=== PATIENT | male | born 1955 | race Caucasian/White ===

== ENCOUNTER 2022-12-01 13:13 | Observation (INO) | payer MEDICARE, SELFPAY ==
[2022-12-01] VITALS (75 sets, daily range): BP systolic 120–170; BP diastolic 57–102; PULSE 60–85; RESP 12–46; TEMP 36.6; O2SAT 95–99; BMI 30.8
--- NOTE | 2022-12-01 13:21 | DI.RAD.S_ITS ---
PROCEDURE: XR CHEST 1V INDICATIONS: chest pain TECHNIQUE: One view of the chest was acquired. COMPARISON: None. FINDINGS: Surgical changes and devices: None. Lungs and pleura: Lungs are clear. No pleural effusions or pneumothorax. Mediastinum: Mediastinal contours appear normal. Heart size is normal. Bones and chest wall: No suspicious bony lesions. Overlying soft tissues appear unremarkable. IMPRESSION: No acute cardiopulmonary pathology. Dictated by: Nikos Phan M.D. on 12/01/2022 at 13:57 Approved by: Nikos Phan M.D. on 12/01/2022 at 13:57
[2022-12-01] MEDS: ASPIRIN 81 MG CHEW TAB 324 MG PO (13:44)
[2022-12-01 13:49] LABS: Add Manual Diff / Slide Review NO; Basophils Absolute Auto 100 /uL (0-100); Basophils Percent Auto 0.5 % (0-2); Eosinophils Absolute Auto 300 /uL (0-450); Eosinophils Percent Auto 2.3 % (2-4); Hematocrit 40.3 % (41-53); Hemoglobin 13.5 g/dL (13.5-17.5); Lymphocytes Absolute Auto 1700 /uL (1100-4500); Lymphocytes Percent Auto 14.6 % (25-40); Mean Corpuscular HGB Conc 33.5 % (30-36); Mean Corpuscular Hemoglobin 29.3 PG (26-34); Mean Corpuscular Volume 87.5 fL (80-100); Monocytes Absolute Auto 1100 /uL (0-900); Monocytes Percent Auto 9.2 % (3-14); Neutrophils Absolute Auto 8500 /uL (1500-7000); Neutrophils Percent Auto 73.4 % (50-75); Platelet Count 347 X10^3/uL (150-400); White Blood Cell Count 11.6 X10^3/uL (4.5-11.0)
[2022-12-01 13:54] LABS: INR 1.1 (0.9-1.3); Prothrombin Time 12.3 SECONDS (10.1-12.7)
[2022-12-01 13:57] LABS: PTT Partial Thromboplastin Tim 32 SECONDS (26-36)
[2022-12-01 13:58] LABS: Alanine Aminotransferase 24 IU/L (<50); Albumin 4.2 g/dL (3.5-5.0); Albumin Globulin Ratio 1.1 (1.0-2.8); Alkaline Phosphatase 100 U/L (38-126); Aspartate Aminotransferase 25 IU/L (17-59); BUN Creatinine Ratio 22.1 (6-22); Bilirubin Total 0.4 mg/dL (0.2-1.3); Blood Urea Nitrogen 17 mg/dL (9-20); Calcium 9.1 mg/dL (8.4-10.2); Carbon Dioxide 28 mmol/L (22-32); Chloride 104 mmol/L (98-107); Creatine Kinase 70 U/L (55-170); Estimated Glomerular Filt Rate > 60 mL/min (>60); Globulin 3.7 g/dL (1.7-4.1); Glucose 96 mg/dL (80-110); HEMOLYSIS < 15 (0-50); Lipase 144 U/L (23-300); Potassium 3.9 mmol/L (3.4-5.1); Sodium 137 mmol/L (137-145); Total Protein 7.9 g/dL (6.3-8.2)
--- NOTE | 2022-12-01 14:07 | ED.CHESTPAIN ---
HPI - Chest Pain General Chief Complaint: Chest Pain Stated Complaint: chest pain T-1 Time Seen by Provider: 12/01/22 13:34 Source: patient Mode of arrival: Ambulatory Limitations: no limitations History of Present Illness HPI narrative: Patient is an otherwise healthy 67-year-old male who is here for evaluation of left-sided chest discomfort. He states the discomfort started last evening but is worsened this morning. Has been consistent since the onset. It is somewhat worse when he takes a deep breath. Not worse with movement or eating. No coughing. It does radiate to the left side of his jaw. He does describe it as a pressure. No abdominal pain or nausea and vomiting. Has not tried anything for the symptoms prior to arrival. Related Data Allergies Allergy/AdvReac Type Severity Reaction Status Date / Time No Known Drug Allergies Allergy Verified 12/01/22 13:18 Review of Systems Review of Systems ROS Unobtainable: All systems reviewed & are unremarkable except as noted in HPI and below Patient History Social History Smoking Status: Never smoker Smoking Status: Never smoker alcohol intake frequency: holidays/special occasions only Substance Use Type: does not use Exam Initial Vital Signs Initial Vital Signs: Vital Signs Temperature 98 F 12/01/22 13:18 Pulse Rate 85 12/01/22 13:18 Respiratory Rate 20 12/01/22 13:18 Blood Pressure 158/70 H 12/01/22 13:18 Pulse Oximetry 98 12/01/22 13:18 Oxygen Delivery Method Room Air 12/01/22 13:18 Const General: cooperative, comfortable and No ill appearing [facility] Head: normal to inspection and normocephalic Resp Effort & Inspection: normal respiratory effort Auscultation: clear to auscultation bilaterally Cardio Rate: regular rate Rhythm: regular rhythm GI Inspection: normal to inspection Palpation: soft, No firm and No tender Skin General: no rashes or lesions noted Neuro General: patient alert, patient awake, patient oriented x3 and moves all extremities Extrem General: No edema Psych Appearance: grossly normal and well kempt Scores HEART Score Heart Score history: Moderately Suspicious Heart Score EKG: Non-Specific repolarization disturbance Heart Score Age: > or = 65 years old Heart Score risk factors: No known risk factors Heart Score troponin: < or = to normal limit Heart Score Total: 4 Course Orders Ordered: ED Orders 12/01/22 13:21 XR chest 1V Stat EKG-12 Lead Stat 12/01/22 13:35 Complete Blood Count AUTO DIFF Stat Comprehensive Metabolic Panel Stat ESR [Erythrocyte Sedimentation Rate] Stat Lipase Stat Magnesium Stat PTT Partial Thromboplastin Brian Stat Prothrombin Time INR Stat Troponin & CK Cardiac Panel Stat 12/01/22 13:38 COVID19 -Nasal RAPID Stat 12/01/22 15:00 D Dimer Stat 12/01/22 15:05 CRP [C-Reactive Protein Quant] Stat Troponin & CK Cardiac Panel Stat 12/01/22 17:30 CT angio chest PE protocol Stat Nitroglycerin (Nitroglycerin 0.4 Mg Sl Tab) 0.4 mg SL [id number] PRN PRN Reason: Chest Pain Last Admin: 12/01/22 14:14 Dose: 0.4 mg Documented By: NICK Discontinued Medications Aspirin (Aspirin 81 Mg Chew Tab) 324 mg PO NOW ONE Stop: 12/01/22 13:22 Last Admin: 12/01/22 13:44 Dose: 324 mg Documented By: NICK(2) Al Hydrox/Mg Hydrox/Simethicone 20 ml/ Lidocaine HCl 15 ml 0 ml PO NOW ONE Stop: 12/01/22 14:23 Last Admin: 12/01/22 14:39 Dose: 30 ml Documented By: NICK Vital Signs Vital signs: Vital Signs - 8 hr 12/01/22 13:18 12/01/22 13:37 12/01/22 14:14 Temperature 98 F Pulse Rate 85 70 64 Respiratory Rate 20 21 Blood Pressure 158/70 H 139/66 Pulse Oximetry 98 96 Oxygen Delivery Method Room Air 12/01/22 14:19 12/01/22 13:40 12/01/22 13:40 Temperature Pulse Rate 71 74 Respiratory Rate 18 Blood Pressure 125/60 132/63 Pulse Oximetry 96 Oxygen Delivery Method 12/01/22 13:46 12/01/22 13:46 12/01/22 13:50 Temperature Pulse Rate 75 70 Respiratory Rate 23 21 Blood Pressure 135/60 Pulse Oximetry 97 97 Oxygen Delivery Method 12/01/22 13:50 12/01/22 13:55 12/01/22 13:55 Temperature Pulse Rate 67 Respiratory Rate 23 Blood Pressure 134/62 130/63 Pulse Oximetry 97 Oxygen Delivery Method 12/01/22 14:00 12/01/22 14:00 12/01/22 14:05 Temperature Pulse Rate 68 Respiratory Rate 23 Blood Pressure 128/65 157/68 H Pulse Oximetry 97 Oxygen Delivery Method 12/01/22 14:05 12/01/22 14:10 12/01/22 14:10 Temperature Pulse Rate 71 64 Respiratory Rate 23 24 Blood Pressure 140/61 Pulse Oximetry 98 97 Oxygen Delivery Method 12/01/22 14:14 12/01/22 14:14 12/01/22 14:16 Temperature Pulse Rate 65 Respiratory Rate 23 Blood Pressure 139/66 146/67 H Pulse Oximetry 97 Oxygen Delivery Method 12/01/22 14:16 12/01/22 14:19 12/01/22 14:19 Temperature Pulse Rate 68 71 Respiratory Rate 22 16 Blood Pressure 125/60 Pulse Oximetry 97 96 Oxygen Delivery Method 12/01/22 14:20 12/01/22 14:20 12/01/22 14:25 Temperature Pulse Rate 71 68 Respiratory Rate 14 14 Blood Pressure 133/62 Pulse Oximetry 96 95 Oxygen Delivery Method 12/01/22 14:25 12/01/22 14:30 12/01/22 14:30 Temperature Pulse Rate 67 Respiratory Rate 14 Blood Pressure 129/60 129/62 Pulse Oximetry 96 Oxygen Delivery Method 12/01/22 14:35 12/01/22 14:35 12/01/22 14:40 Temperature Pulse Rate 64 Respiratory Rate 12 Blood Pressure 130/64 132/64 Pulse Oximetry 97 Oxygen Delivery Method 12/01/22 14:40 12/01/22 14:45 12/01/22 14:45 Temperature Pulse Rate 64 71 Respiratory Rate 15 16 Blood Pressure 126/66 Pulse Oximetry 97 96 Oxygen Delivery Method 12/01/22 14:50 12/01/22 14:50 12/01/22 14:55 Temperature Pulse Rate 64 Respiratory Rate 14 Blood Pressure 131/63 126/60 Pulse Oximetry 97 Oxygen Delivery Method 12/01/22 14:55 12/01/22 15:00 12/01/22 15:00 Temperature Pulse Rate 67 65 Respiratory Rate 22 24 Blood Pressure 126/65 Pulse Oximetry 97 98 Oxygen Delivery Method 12/01/22 15:05 12/01/22 15:05 12/01/22 15:10 Temperature Pulse Rate 65 66 Respiratory Rate 23 15 Blood Pressure 136/71 Pulse Oximetry 98 97 Oxygen Delivery Method 12/01/22 15:10 12/01/22 15:15 12/01/22 15:15 Temperature Pulse Rate 65 Respiratory Rate 17 Blood Pressure 120/64 121/58 L Pulse Oximetry 97 Oxygen Delivery Method 12/01/22 15:20 12/01/22 15:20 12/01/22 15:25 Temperature Pulse Rate 68 Respiratory Rate 18 Blood Pressure 127/60 127/61 Pulse Oximetry 98 Oxygen Delivery Method 12/01/22 15:25 12/01/22 15:30 12/01/22 15:30 Temperature Pulse Rate 68 64 Respiratory Rate 18 19 Blood Pressure 135/66 Pulse Oximetry 97 98 Oxygen Delivery Method 12/01/22 15:35 12/01/22 15:35 12/01/22 15:40 Temperature Pulse Rate 66 Respiratory Rate 23 Blood Pressure 130/63 135/66 Pulse Oximetry 98 Oxygen Delivery Method 12/01/22 15:40 12/01/22 15:53 12/01/22 15:53 Temperature Pulse Rate 64 69 Respiratory Rate 23 19 Blood Pressure 144/70 H Pulse Oximetry 98 98 Oxygen Delivery Method 12/01/22 15:55 12/01/22 15:55 12/01/22 16:00 Temperature Pulse Rate 70 85 Respiratory Rate 17 20 Blood Pressure 137/68 Pulse Oximetry 98 98 Oxygen Delivery Method 12/01/22 16:01 12/01/22 16:01 12/01/22 16:05 Temperature Pulse Rate 70 71 Respiratory Rate 15 19 Blood Pressure 139/58 L Pulse Oximetry 98 98 Oxygen Delivery Method 12/01/22 16:05 12/01/22 16:10 12/01/22 16:10 Temperature Pulse Rate 74 Respiratory Rate 21 Blood Pressure 138/68 133/63 Pulse Oximetry 98 Oxygen Delivery Method 12/01/22 16:15 12/01/22 16:15 12/01/22 16:20 Temperature Pulse Rate 70 Respiratory Rate 17 Blood Pressure 136/65 145/71 H Pulse Oximetry 97 Oxygen Delivery Method 12/01/22 16:20 12/01/22 16:25 12/01/22 16:25 Temperature Pulse Rate 67 74 Respiratory Rate 17 23 Blood Pressure 153/74 H Pulse Oximetry 97 98 Oxygen Delivery Method 12/01/22 16:30 12/01/22 16:30 12/01/22 16:35 Temperature Pulse Rate 74 Respiratory Rate 23 Blood Pressure 151/74 H 154/74 H Pulse Oximetry 98 Oxygen Delivery Method 12/01/22 16:35 12/01/22 16:40 12/01/22 16:40 Temperature Pulse Rate 73 75 Respiratory Rate 16 17 Blood Pressure 143/66 H Pulse Oximetry 98 97 Oxygen Delivery Method 12/01/22 16:45 12/01/22 16:45 12/01/22 16:50 Temperature Pulse Rate 74 Respiratory Rate 22 Blood Pressure 145/70 H 142/73 H Pulse Oximetry 97 Oxygen Delivery Method 12/01/22 16:50 12/01/22 16:55 12/01/22 16:55 Temperature Pulse Rate 72 69 Respiratory Rate 23 22 Blood Pressure 133/77 Pulse Oximetry 98 98 Oxygen Delivery Method 12/01/22 17:00 12/01/22 17:00 12/01/22 17:05 Temperature Pulse Rate 71 Respiratory Rate 23 Blood Pressure 133/85 134/83 Pulse Oximetry 96 Oxygen Delivery Method 12/01/22 17:05 12/01/22 17:11 12/01/22 17:11 Temperature Pulse Rate 68 73 Respiratory Rate 23 22 Blood Pressure 150/102 H Pulse Oximetry 96 97 Oxygen Delivery Method 12/01/22 17:16 12/01/22 17:16 12/01/22 17:20 Temperature Pulse Rate 73 Respiratory Rate 23 Blood Pressure 137/98 H 141/67 H Pulse Oximetry 98 Oxygen Delivery Method 12/01/22 17:20 12/01/22 17:25 12/01/22 17:25 Temperature Pulse Rate 70 73 Respiratory Rate 22 21 Blood Pressure 138/67 Pulse Oximetry 97 97 Oxygen Delivery Method 12/01/22 17:30 12/01/22 17:30 12/01/22 17:35 Temperature Pulse Rate 69 Respiratory Rate 19 Blood Pressure 140/72 148/74 H Pulse Oximetry 98 Oxygen Delivery Method 12/01/22 17:35 12/01/22 17:40 12/01/22 17:40 Temperature Pulse Rate 70 70 Respiratory Rate 21 18 Blood Pressure 138/68 Pulse Oximetry 96 97 Oxygen Delivery Method 12/01/22 18:00 12/01/22 18:30 Temperature Pulse Rate 77 76 Respiratory Rate 17 46 H Blood Pressure Pulse Oximetry 99 97 Oxygen Delivery Method MDM - Chest Pain Lab Data Attestation: I reviewed the patient's lab results. 12/01/22 13:35 12/01/22 13:35 Labs: Lab Results 12/01/22 12/01/22 12/01/22 Range/Units 13:35 13:35 13:35 WBC 11.6 H (4.5-11.0) X10^3/uL RBC 4.60 (4.5-5.9) X10^6/uL Hgb 13.5 (13.5-17.5) g/dL Hct 40.3 L (41-53) % MCV 87.5 (80-100) fL MCH 29.3 (26-34) PG MCHC 33.5 (30-36) % RDW 13.0 (11.6-14.8) % Plt Count 347 (150-400) X10^3/uL Neut % (Auto) 73.4 (50-75) % Lymph % (Auto) 14.6 L (25-40) % [place] % (Auto) 9.2 (3-14) % Eos % (Auto) 2.3 (2-4) % Baso % (Auto) 0.5 (0-2) % Neut # (Auto) 8500 H (8776-1742) /uL Lymph # (Auto) 1700 (5915-3617) /uL [place] # (Auto) 1100 H (0-900) /uL Eos # (Auto) 300 (0-450) /uL Baso # (Auto) 100 (0-100) /uL ESR (0-15) MM/HR PT 12.3 (10.1-12.7) SECONDS INR 1.1 (0.9-1.3) APTT 32 (26-36) SECONDS D-Dimer (<500) ng/ml Sodium 137 (137-145) mmol/L Potassium 3.9 (3.4-5.1) mmol/L Chloride 104 (98-107) mmol/L Carbon Dioxide 28 (22-32) mmol/L BUN 17 (9-20) mg/dL Creatinine 0.77 (0.66-1.25) mg/dL Estimated GFR > 60 (>60) mL/min BUN/Creatinine Ratio 22.1 H (6-22) Glucose 96 (80-110) mg/dL Calcium 9.1 (8.4-10.2) mg/dL Magnesium 2.0 (1.6-2.3) mg/dL Total Bilirubin 0.4 (0.2-1.3) mg/dL AST 25 (17-59) IU/L ALT 24 (<50) IU/L Alkaline Phosphatase 100 (38-126) U/L Total Creatine Kinase 70 (55-170) U/L CK-MB (CK-2) TNP CK-MB (CK-2) Rel Index TNP Troponin I < 0.012 (0.01-0.034) ng/mL C-Reactive Protein (<1.0) mg/dL Total Protein 7.9 (6.3-8.2) g/dL Albumin 4.2 (3.5-5.0) g/dL Globulin 3.7 (1.7-4.1) g/dL Albumin/Globulin Ratio 1.1 (1.0-2.8) Lipase 144 (23-300) U/L SARS-CoV-2 (PCR) (Negative) 12/01/22 12/01/22 12/01/22 Range/Units 13:35 13:38 15:00 WBC (4.5-11.0) X10^3/uL RBC (4.5-5.9) X10^6/uL Hgb (13.5-17.5) g/dL Hct (41-53) % MCV (80-100) fL MCH (26-34) PG MCHC (30-36) % RDW (11.6-14.8) % Plt Count (150-400) X10^3/uL Neut % (Auto) (50-75) % Lymph % (Auto) (25-40) % [place] % (Auto) (3-14) % Eos % (Auto) (2-4) % Baso % (Auto) (0-2) % Neut # (Auto) (2957-4484) /uL Lymph # (Auto) (3294-6169) /uL [place] # (Auto) (0-900) /uL Eos # (Auto) (0-450) /uL Baso # (Auto) (0-100) /uL ESR 11 (0-15) MM/HR PT (10.1-12.7) SECONDS INR (0.9-1.3) APTT (26-36) SECONDS D-Dimer 330 (<500) ng/ml Sodium (137-145) mmol/L Potassium (3.4-5.1) mmol/L Chloride (98-107) mmol/L Carbon Dioxide (22-32) mmol/L BUN (9-20) mg/dL Creatinine (0.66-1.25) mg/dL Estimated GFR (>60) mL/min BUN/Creatinine Ratio (6-22) Glucose (80-110) mg/dL Calcium (8.4-10.2) mg/dL Magnesium (1.6-2.3) mg/dL Total Bilirubin (0.2-1.3) mg/dL AST (17-59) IU/L ALT (<50) IU/L Alkaline Phosphatase (38-126) U/L Total Creatine Kinase (55-170) U/L CK-MB (CK-2) CK-MB (CK-2) Rel Index Troponin I (0.01-0.034) ng/mL C-Reactive Protein (<1.0) mg/dL Total Protein (6.3-8.2) g/dL Albumin (3.5-5.0) g/dL Globulin (1.7-4.1) g/dL Albumin/Globulin Ratio (1.0-2.8) Lipase (23-300) U/L SARS-CoV-2 (PCR) Negative (Negative) 12/01/22 12/01/22 Range/Units 15:05 15:05 WBC (4.5-11.0) X10^3/uL RBC (4.5-5.9) X10^6/uL Hgb (13.5-17.5) g/dL Hct (41-53) % MCV (80-100) fL MCH (26-34) PG MCHC (30-36) % RDW (11.6-14.8) % Plt Count (150-400) X10^3/uL Neut % (Auto) (50-75) % Lymph % (Auto) (25-40) % [place] % (Auto) (3-14) % Eos % (Auto) (2-4) % Baso % (Auto) (0-2) % Neut # (Auto) (8745-1916) /uL Lymph # (Auto) (0880-1292) /uL [place] # (Auto) (0-900) /uL Eos # (Auto) (0-450) /uL Baso # (Auto) (0-100) /uL ESR (0-15) MM/HR PT (10.1-12.7) SECONDS INR (0.9-1.3) APTT (26-36) SECONDS D-Dimer (<500) ng/ml Sodium (137-145) mmol/L Potassium (3.4-5.1) mmol/L Chloride (98-107) mmol/L Carbon Dioxide (22-32) mmol/L BUN (9-20) mg/dL Creatinine (0.66-1.25) mg/dL Estimated GFR (>60) mL/min BUN/Creatinine Ratio (6-22) Glucose (80-110) mg/dL Calcium (8.4-10.2) mg/dL Magnesium (1.6-2.3) mg/dL Total Bilirubin (0.2-1.3) mg/dL AST (17-59) IU/L ALT (<50) IU/L Alkaline Phosphatase (38-126) U/L Total Creatine Kinase 61 (55-170) U/L CK-MB (CK-2) TNP CK-MB (CK-2) Rel Index TNP Troponin I < 0.012 (0.01-0.034) ng/mL C-Reactive Protein 1.0 (<1.0) mg/dL Total Protein (6.3-8.2) g/dL Albumin (3.5-5.0) g/dL Globulin (1.7-4.1) g/dL Albumin/Globulin Ratio (1.0-2.8) Lipase (23-300) U/L SARS-CoV-2 (PCR) (Negative) Urine Dip Bedside Urine Glucose Negative Bedside Urine Bilirubin - Negative Bedside Urine Ketone +/- 5 Urine Specific [place] 1.030 Bedside Urine Occult Blood - Negative Bedside Urine pH 6.0 Bedside Urine Protein - Negative Bedside Urine Urobilinogen - Negative Bedside Urine Nitrite - Negative Bedside Urine Leukocytes - Negative Esterase Imaging Data Chest x-ray: Radiologist's Impression: PROCEDURE:? XR CHEST 1V ? INDICATIONS:? chest pain ? TECHNIQUE:? One view of the chest was acquired.? ? COMPARISON:? None. ? FINDINGS:? ? Surgical changes and devices:? None.? ? Lungs and pleura:? Lungs are clear.? No pleural effusions or pneumothorax.? ? Mediastinum:? Mediastinal contours appear normal.? Heart size is normal.? ? Bones and chest wall:? No suspicious bony lesions.? Overlying soft tissues appear unremarkable.? ? IMPRESSION:? No acute cardiopulmonary pathology. CT scan - chest: Radiologist's Impression: PROCEDURE:? CT ANGIO CHEST PE PROTOCOL ? INDICATIONS:? chest pain and shortness of breath ? TECHNIQUE:? After the administration of intravenous contrast, 2 mm thick sections acquired from the pulmonary apices to the posterior costophrenic angles.? 3-dimensional maximum intensity projection (MIP) coronal and sagittal reformats were then acquired through the thorax.? For radiation dose reduction, the following was used:? automated exposure control, adjustment of mA and/or kV according to patient size.? ? COMPARISON:? [facility], CR, XR CHEST 1V, 12/01/2022, 13:20. ? FINDINGS:? ? Pulmonary arteries:? Pulmonary arteries are normal in size, and demonstrate no intraluminal filling defects to suggest central pulmonary embolism.? ? Lungs and pleura:? Minimal dependent bandlike opacities at the lung bases, likely atelectasis.? No pleural effusions or pneumothorax.? ? Mediastinum:? no pericardial effusion.? No mediastinal or hilar adenopathy.? Thoracic aorta is normal in caliber and enhancement.? Esophagus is normal in caliber ? Bones and chest wall:? Multilevel degenerative change of the visualized spine.? No axillary or supraclavicular adenopathy.? ? Abdomen:? Visualized upper abdominal solid organs appear normal in the early arterial phase of enhancement.? ? IMPRESSION:? No pulmonary embolism identified. ECG Data Attestation: I personally reviewed and interpreted this ECG as follows: Interpretation: Sinus rhythm Normal QRS Normal QTC Nonspecific ST T wave changes MDM Narrative Medical decision making narrative: Patient has had approximately 12 hours of symptoms. His troponins are negative. EKG is relatively unremarkable. Does have a heart score of 4. His chest discomfort did radiate up to his left jaw and down his left arm. Patient has been hypertensive here in the emergency department. He is no history of hypertension. Remaining labs are unremarkable. Given his history and physical exam patient does require admission to the hospital for further risk stratification of his chest pain. I did discuss the case with Dr. Peña on-call for Internal Medicine who requested an ESR and CRP and a CT scan of his chest to evaluate for possible pericardial effusion which would be more consistent with a pericarditis. His ESR and CRP were normal and the CT scan was unremarkable as well. We will proceed with admission to the hospital. I did discuss this with the patient who expressed understanding and agreement. Discharge Plan Departure Patient Disposition: Admitted as Observation Clinical Impression: Atypical chest pain, Hypertension
[2022-12-01 14:10] LABS: Troponin I < 0.012 ng/mL (0.01-0.034)
[2022-12-01] MEDS: NITROGLYCERIN 0.4 MG SL TAB SL ×2 (14:14→21:50)
[2022-12-01 14:18] LABS: COVID19 -Nasal RAPID Negative (Negative)
[2022-12-01] MEDS: MAG HYDROX/ALUMINUM/SIMETH SUS 20 ML, LIDOCAINE VISCOUS 2% 15 ML PO (14:39)
[2022-12-01 15:20] LABS: D Dimer 330 ng/ml (<500)
[2022-12-01 16:08] LABS: Creatine Kinase 61 U/L (55-170)
[2022-12-01 16:19] LABS: Troponin I < 0.012 ng/mL (0.01-0.034)
--- NOTE | 2022-12-01 17:30 | DI.CT.S_ITS ---
PROCEDURE: CT ANGIO CHEST PE PROTOCOL INDICATIONS: chest pain and shortness of breath TECHNIQUE: After the administration of intravenous contrast, 2 mm thick sections acquired from the pulmonary apices to the posterior costophrenic angles. 3-dimensional maximum intensity projection (MIP) coronal and sagittal reformats were then acquired through the thorax. For radiation dose reduction, the following was used: automated exposure control, adjustment of mA and/or kV according to patient size. COMPARISON: [facility], CR, XR CHEST 1V, 12/01/2022, 13:20. FINDINGS: Pulmonary arteries: Pulmonary arteries are normal in size, and demonstrate no intraluminal filling defects to suggest central pulmonary embolism. Lungs and pleura: Minimal dependent bandlike opacities at the lung bases, likely atelectasis. No pleural effusions or pneumothorax. Mediastinum: no pericardial effusion. No mediastinal or hilar adenopathy. Thoracic aorta is normal in caliber and enhancement. Esophagus is normal in caliber Bones and chest wall: Multilevel degenerative change of the visualized spine. No axillary or supraclavicular adenopathy. Abdomen: Visualized upper abdominal solid organs appear normal in the early arterial phase of enhancement. IMPRESSION: No pulmonary embolism identified. Dictated by: Chele Ritter M.D. on 12/01/2022 at 18:09 Approved by: Chele Ritter M.D. on 12/01/2022 at 18:30
[2022-12-01 18:31] LABS: Erythrocyte Sedimentation Rate 11 MM/HR (0-15)
[2022-12-01] MEDS: ACETAMINOPHEN 325 MG TABLET 975 MG PO (19:55)
--- NOTE | 2022-12-01 20:48 | PC.NURSE ---
Pt arrived via wheelchair at 2019. Ambulated to bed steady on feet. AxO 4, lungs clear to auscultation. C/o chest pain 3\10 HR 67 BP 138/74 98% RA RR 16. Oriented to call light, room and bed. Updated on plan of care.
--- NOTE | 2022-12-01 21:38 | PC.NURSE ---
Addendum entered by Carl Flores R.N. 12/01/22 22:22: 2150: EKG reading 'NSR and early repolarization'. 2L NC placed. Dr. Garcia called, no answer. 2219: Dr. Garcia informed of EKG, 5/10 chest pressure. Ibuprofen ordered. Original Note: 2134: [employer] PAYABLE TECHNICIAN made this RN aware of ST elevation readings on tele strip. Hospitalist Dr. Garcia made aware and STAT EKG ordered. RT called for EKG.
[2022-12-01] MEDS: ACETAMINOPHEN 325 MG TABLET 650 MG PO (21:56)
[2022-12-01 22:15] LABS: Troponin I < 0.012 ng/mL (0.01-0.034)
--- NOTE | 2022-12-01 22:29 | PM.HP.1 ---
History of Present Illness History of Present Illness Date Patient Seen: 12/01/22 Time Patient Seen: 22:30 Chief complaint: chest pain T-1 Narrative: Mr. Cerda is a 67M with listed history of hypertension who presents to the hospital with chest pain. He states the discomfort in his chest started the day prior to admission and has worsened. He describes the pain as constant, like a pressure in his chest. It is worth with breathing deeply. It is worse with laying on his side and improves with sitting up. He has felt it on his left and right side of his chest. It has radiated to his jaw. He was given nitro and the pain did not resolve. He has not had any cold symptoms. He does ask if he could referred pain from his spine as he has had laminectomy in the past, but he denies shooting, electrical, tingling pain. He does note having chronic sinus issues and frequently needing to clear is throat which he wonders if could be related. He notes having difficulty with swallowing at times, especially with liquids. He notes he had exercise stress test, he thinks in Jul 2021, which he says was normal. In the ED workup was done, vitals notable for afebrile, heart rate in 80s, blood pressure 150s/70s. Sats 98% on room air. Labs reviewed by me and notable for WBC 11.6, hgb 13.5, plts 347. Creatinine 0.77. Troponin negative x3. EKG reviewed and with multiple leads with early repolarization. Chest xray and CTA reviewed and negative for acute process. He was given aspirin and admitted for further treatment. REPLACED BY [facility] Social History household members: spouse Smoking Status: Never smoker Meds Home Medications and Allergies Home Medications Medication Instructions Recorded Confirmed Type No Known Home Medications 12/01/22 12/01/22 History Allergies Allergy/AdvReac Type Severity Reaction Status Date / Time No Known Drug Allergies Allergy Verified 12/01/22 13:18 Review of Systems Review of Systems Narrative: 14 systems reviewed and negative aside from what is noted in HPI Exam Vital Signs (past 8 hours): - 12/01/22 14:30 12/01/22 14:30 12/01/22 14:35 Temperature Pulse Rate 67 Respiratory Rate 14 Blood Pressure 129/62 130/64 Pulse Oximetry 96 Oxygen Delivery Method Oxygen Flow Rate 12/01/22 14:35 12/01/22 14:40 12/01/22 14:40 Temperature Pulse Rate 64 64 Respiratory Rate 12 15 Blood Pressure 132/64 Pulse Oximetry 97 97 Oxygen Delivery Method Oxygen Flow Rate 12/01/22 14:45 12/01/22 14:45 12/01/22 14:50 Temperature Pulse Rate 71 64 Respiratory Rate 16 14 Blood Pressure 126/66 Pulse Oximetry 96 97 Oxygen Delivery Method Oxygen Flow Rate 12/01/22 14:50 12/01/22 14:55 12/01/22 14:55 Temperature Pulse Rate 67 Respiratory Rate 22 Blood Pressure 131/63 126/60 Pulse Oximetry 97 Oxygen Delivery Method Oxygen Flow Rate 12/01/22 15:00 12/01/22 15:00 12/01/22 15:05 Temperature Pulse Rate 65 Respiratory Rate 24 Blood Pressure 126/65 136/71 Pulse Oximetry 98 Oxygen Delivery Method Oxygen Flow Rate 12/01/22 15:05 12/01/22 15:10 12/01/22 15:10 Temperature Pulse Rate 65 66 Respiratory Rate 23 15 Blood Pressure 120/64 Pulse Oximetry 98 97 Oxygen Delivery Method Oxygen Flow Rate 12/01/22 15:15 12/01/22 15:15 12/01/22 15:20 Temperature Pulse Rate 65 68 Respiratory Rate 17 18 Blood Pressure 121/58 L Pulse Oximetry 97 98 Oxygen Delivery Method Oxygen Flow Rate 12/01/22 15:20 12/01/22 15:25 12/01/22 15:25 Temperature Pulse Rate 68 Respiratory Rate 18 Blood Pressure 127/60 127/61 Pulse Oximetry 97 Oxygen Delivery Method Oxygen Flow Rate 12/01/22 15:30 12/01/22 15:30 12/01/22 15:35 Temperature Pulse Rate 64 Respiratory Rate 19 Blood Pressure 135/66 130/63 Pulse Oximetry 98 Oxygen Delivery Method Oxygen Flow Rate 12/01/22 15:35 12/01/22 15:40 12/01/22 15:40 Temperature Pulse Rate 66 64 Respiratory Rate 23 23 Blood Pressure 135/66 Pulse Oximetry 98 98 Oxygen Delivery Method Oxygen Flow Rate 12/01/22 15:53 12/01/22 15:53 12/01/22 15:55 Temperature Pulse Rate 69 Respiratory Rate 19 Blood Pressure 144/70 H 137/68 Pulse Oximetry 98 Oxygen Delivery Method Oxygen Flow Rate 12/01/22 15:55 12/01/22 16:00 12/01/22 16:01 Temperature Pulse Rate 70 85 Respiratory Rate 17 20 Blood Pressure 139/58 L Pulse Oximetry 98 98 Oxygen Delivery Method Oxygen Flow Rate 12/01/22 16:01 12/01/22 16:05 12/01/22 16:05 Temperature Pulse Rate 70 71 Respiratory Rate 15 19 Blood Pressure 138/68 Pulse Oximetry 98 98 Oxygen Delivery Method Oxygen Flow Rate 12/01/22 16:10 12/01/22 16:10 12/01/22 16:15 Temperature Pulse Rate 74 70 Respiratory Rate 21 17 Blood Pressure 133/63 Pulse Oximetry 98 97 Oxygen Delivery Method Oxygen Flow Rate 12/01/22 16:15 12/01/22 16:20 12/01/22 16:20 Temperature Pulse Rate 67 Respiratory Rate 17 Blood Pressure 136/65 145/71 H Pulse Oximetry 97 Oxygen Delivery Method Oxygen Flow Rate 12/01/22 16:25 12/01/22 16:25 12/01/22 16:30 Temperature Pulse Rate 74 Respiratory Rate 23 Blood Pressure 153/74 H 151/74 H Pulse Oximetry 98 Oxygen Delivery Method Oxygen Flow Rate 12/01/22 16:30 12/01/22 16:35 12/01/22 16:35 Temperature Pulse Rate 74 73 Respiratory Rate 23 16 Blood Pressure 154/74 H Pulse Oximetry 98 98 Oxygen Delivery Method Oxygen Flow Rate 12/01/22 16:40 12/01/22 16:40 12/01/22 16:45 Temperature Pulse Rate 75 Respiratory Rate 17 Blood Pressure 143/66 H 145/70 H Pulse Oximetry 97 Oxygen Delivery Method Oxygen Flow Rate 12/01/22 16:45 12/01/22 16:50 12/01/22 16:50 Temperature Pulse Rate 74 72 Respiratory Rate 22 23 Blood Pressure 142/73 H Pulse Oximetry 97 98 Oxygen Delivery Method Oxygen Flow Rate 12/01/22 16:55 12/01/22 16:55 12/01/22 17:00 Temperature Pulse Rate 69 Respiratory Rate 22 Blood Pressure 133/77 133/85 Pulse Oximetry 98 Oxygen Delivery Method Oxygen Flow Rate 12/01/22 17:00 12/01/22 17:05 12/01/22 17:05 Temperature Pulse Rate 71 68 Respiratory Rate 23 23 Blood Pressure 134/83 Pulse Oximetry 96 96 Oxygen Delivery Method Oxygen Flow Rate 12/01/22 17:11 12/01/22 17:11 12/01/22 17:16 Temperature Pulse Rate 73 Respiratory Rate 22 Blood Pressure 150/102 H 137/98 H Pulse Oximetry 97 Oxygen Delivery Method Oxygen Flow Rate 12/01/22 17:16 12/01/22 17:20 12/01/22 17:20 Temperature Pulse Rate 73 70 Respiratory Rate 23 22 Blood Pressure 141/67 H Pulse Oximetry 98 97 Oxygen Delivery Method Oxygen Flow Rate 12/01/22 17:25 12/01/22 17:25 12/01/22 17:30 Temperature Pulse Rate 73 Respiratory Rate 21 Blood Pressure 138/67 140/72 Pulse Oximetry 97 Oxygen Delivery Method Oxygen Flow Rate 12/01/22 17:30 12/01/22 17:35 12/01/22 17:35 Temperature Pulse Rate 69 70 Respiratory Rate 19 21 Blood Pressure 148/74 H Pulse Oximetry 98 96 Oxygen Delivery Method Oxygen Flow Rate 12/01/22 17:40 12/01/22 17:40 12/01/22 18:00 Temperature Pulse Rate 70 77 Respiratory Rate 18 17 Blood Pressure 138/68 Pulse Oximetry 97 99 Oxygen Delivery Method Oxygen Flow Rate 12/01/22 18:30 12/01/22 19:00 12/01/22 19:24 Temperature Pulse Rate 76 72 Respiratory Rate 46 H 19 Blood Pressure 160/74 H Pulse Oximetry 97 97 Oxygen Delivery Method Oxygen Flow Rate 12/01/22 19:24 12/01/22 19:25 12/01/22 19:25 Temperature Pulse Rate 75 75 Respiratory Rate 14 18 Blood Pressure 136/57 L Pulse Oximetry 98 97 Oxygen Delivery Method Oxygen Flow Rate 12/01/22 19:30 12/01/22 19:30 12/01/22 19:35 Temperature Pulse Rate 73 Respiratory Rate 24 Blood Pressure 144/67 H 155/72 H Pulse Oximetry 98 Oxygen Delivery Method Oxygen Flow Rate 12/01/22 19:35 12/01/22 19:40 12/01/22 19:40 Temperature Pulse Rate 71 71 Respiratory Rate 20 18 Blood Pressure 157/72 H Pulse Oximetry 98 98 Oxygen Delivery Method Oxygen Flow Rate 12/01/22 19:45 12/01/22 19:45 12/01/22 19:50 Temperature Pulse Rate 72 Respiratory Rate 22 Blood Pressure 155/71 H 170/77 H Pulse Oximetry 98 Oxygen Delivery Method Oxygen Flow Rate 12/01/22 19:50 12/01/22 19:55 12/01/22 19:55 Temperature Pulse Rate 69 72 Respiratory Rate 16 25 H Blood Pressure 141/66 H Pulse Oximetry 97 98 Oxygen Delivery Method Oxygen Flow Rate 12/01/22 20:00 12/01/22 20:00 12/01/22 20:05 Temperature Pulse Rate 71 69 Respiratory Rate 19 18 Blood Pressure 145/67 H Pulse Oximetry 97 97 Oxygen Delivery Method Oxygen Flow Rate 12/01/22 20:05 12/01/22 20:10 12/01/22 20:10 Temperature Pulse Rate 70 Respiratory Rate 18 Blood Pressure 146/68 H 146/67 H Pulse Oximetry 97 Oxygen Delivery Method Oxygen Flow Rate 12/01/22 20:15 12/01/22 20:15 12/01/22 20:20 Temperature 97.8 F Pulse Rate 71 67 Respiratory Rate 19 18 Blood Pressure 147/69 H 138/74 Pulse Oximetry 97 98 Oxygen Delivery Method Oxygen Flow Rate 0 12/01/22 21:40 12/01/22 21:50 12/01/22 21:53 Temperature Pulse Rate 63 63 Respiratory Rate Blood Pressure 129/69 129/69 Pulse Oximetry 96 97 Oxygen Delivery Method Oxygen Flow Rate 2 12/01/22 22:10 12/01/22 22:15 Temperature Pulse Rate 60 Respiratory Rate Blood Pressure 123/73 Pulse Oximetry 97 98 Oxygen Delivery Method Nasal Cannula Oxygen Flow Rate 2 2 Oxygen Delivery Method Nasal Cannula Oxygen Flow Rate 2 Narrative Exam Narrative: GEN: no acute distress HEENT: moist mucous membranes, PERRL NECK: trachea midline, no jvd PULM: clear bilaterally, no wheezes, rhonchi, rales CV: regular rate and rhythm, no murmurs ABD: soft, nontender, nondistended, no organomegaly EXT: warm and well perfused with no edema NEURO: awake, alert, oriented, with no focal deficits Objective Labs 12/01/22 13:35 12/01/22 13:35 Labs: Laboratory Results - last 24 hr 12/01/22 12/01/22 12/01/22 13:35 13:35 13:35 WBC 11.6 H RBC 4.60 Hgb 13.5 Hct 40.3 L MCV 87.5 MCH 29.3 MCHC 33.5 RDW 13.0 Plt Count 347 Neut % (Auto) 73.4 Lymph % (Auto) 14.6 L [place] % (Auto) 9.2 Eos % (Auto) 2.3 Baso % (Auto) 0.5 Neut # (Auto) 8500 H Lymph # (Auto) 1700 [place] # (Auto) 1100 H Eos # (Auto) 300 Baso # (Auto) 100 ESR PT 12.3 INR 1.1 APTT 32 D-Dimer Sodium 137 Potassium 3.9 Chloride 104 Carbon Dioxide 28 BUN 17 Creatinine 0.77 Estimated GFR > 60 BUN/Creatinine Ratio 22.1 H Glucose 96 Calcium 9.1 Magnesium 2.0 Total Bilirubin 0.4 AST 25 ALT 24 Alkaline Phosphatase 100 Total Creatine Kinase 70 CK-MB (CK-2) TNP CK-MB (CK-2) Rel Index TNP Troponin I < 0.012 C-Reactive Protein Total Protein 7.9 Albumin 4.2 Globulin 3.7 Albumin/Globulin Ratio 1.1 Lipase 144 SARS-CoV-2 (PCR) 12/01/22 12/01/22 12/01/22 13:35 13:38 15:00 WBC RBC Hgb Hct MCV MCH MCHC RDW Plt Count Neut % (Auto) Lymph % (Auto) [place] % (Auto) Eos % (Auto) Baso % (Auto) Neut # (Auto) Lymph # (Auto) [place] # (Auto) Eos # (Auto) Baso # (Auto) ESR 11 PT INR APTT D-Dimer 330 Sodium Potassium Chloride Carbon Dioxide BUN Creatinine Estimated GFR BUN/Creatinine Ratio Glucose Calcium Magnesium Total Bilirubin AST ALT Alkaline Phosphatase Total Creatine Kinase CK-MB (CK-2) CK-MB (CK-2) Rel Index Troponin I C-Reactive Protein Total Protein Albumin Globulin Albumin/Globulin Ratio Lipase SARS-CoV-2 (PCR) Negative 12/01/22 12/01/22 12/01/22 15:05 15:05 21:36 WBC RBC Hgb Hct MCV MCH MCHC RDW Plt Count Neut % (Auto) Lymph % (Auto) [place] % (Auto) Eos % (Auto) Baso % (Auto) Neut # (Auto) Lymph # (Auto) [place] # (Auto) Eos # (Auto) Baso # (Auto) ESR PT INR APTT D-Dimer Sodium Potassium Chloride Carbon Dioxide BUN Creatinine Estimated GFR BUN/Creatinine Ratio Glucose Calcium Magnesium Total Bilirubin AST ALT Alkaline Phosphatase Total Creatine Kinase 61 CK-MB (CK-2) TNP CK-MB (CK-2) Rel Index TNP Troponin I < 0.012 < 0.012 C-Reactive Protein 1.0 Total Protein Albumin Globulin Albumin/Globulin Ratio Lipase SARS-CoV-2 (PCR) Assessment & Plan Assessment & Plan narrative: 1. Atypical chest pain -pain constant, pleuritic, changes with position -not resolved with nitro -troponins negative x3 -ekg with possible slight, multi-lead st elevations -continue to trend troponin -continue aspirin, statin -ordered for echo -CTA negative for PE, other acute process -suspect possible pericarditis -inflammatory markers negative -ordered nsaids -for now will hold on stress test, may still need one prior to dc pending above workup 2. Hypertension -not hypertensive on admission -no indication for medication currently 3. Probable post-nasal drip, cough, swallow difficulty -frequently needs to clear throat -he also notes difficulty with swallowing and like he chokes at times -no odynophagia -ordered flonase -consult speech for eval -may need ent referral I have discussed the plan and obtained history from the patient. I have discussed plan of care with ED physiciain and bedside nurse. I have reviewed, labs, chest xray, ekg CODE: Full Proxy: Delores Prashant, spouse
[2022-12-01] MEDS: IBUPROFEN 600 MG TABLET PO (22:53)
[2022-12-02] VITALS (7 sets, daily range): BP systolic 110–123; BP diastolic 54–64; PULSE 57–62; RESP 16–18; TEMP 36.2–36.6; O2SAT 96–97
[2022-12-02 06:15] LABS: Add Manual Diff / Slide Review NO; Basophils Absolute Auto 0 /uL (0-100); Basophils Percent Auto 0.4 % (0-2); Eosinophils Absolute Auto 300 /uL (0-450); Eosinophils Percent Auto 4.7 % (2-4); Hematocrit 37.3 % (41-53); Hemoglobin 12.7 g/dL (13.5-17.5); Lymphocytes Absolute Auto 1500 /uL (1100-4500); Lymphocytes Percent Auto 21.2 % (25-40); Mean Corpuscular Hemoglobin 29.8 PG (26-34); Mean Corpuscular Volume 87.7 fL (80-100); Monocytes Absolute Auto 1200 /uL (0-900); Monocytes Percent Auto 16.6 % (3-14); Neutrophils Absolute Auto 4000 /uL (1500-7000); Neutrophils Percent Auto 57.1 % (50-75); Platelet Count 302 X10^3/uL (150-400); Red Blood Cell Count 4.25 X10^6/uL (4.5-5.9); Red Cell Distribution Width 13.4 % (11.6-14.8)
[2022-12-02] MEDS: IBUPROFEN 600 MG TABLET PO (06:17)
[2022-12-02 06:27] LABS: BUN Creatinine Ratio 21.3 (6-22); Blood Urea Nitrogen 16 mg/dL (9-20); Calcium 8.5 mg/dL (8.4-10.2); Carbon Dioxide 28 mmol/L (22-32); Chloride 104 mmol/L (98-107); Cholesterol 145 mg/dL (140-199); Estimated Glomerular Filt Rate > 60 mL/min (>60); Glucose 91 mg/dL (80-110); HDL Cholesterol 33 mg/dL (40-60); HEMOLYSIS < 15 (0-50); LDL Cholesterol Calculated 95 mg/dL (<100); Magnesium 2.2 mg/dL (1.6-2.3); Sodium 138 mmol/L (137-145); Triglycerides 83 mg/dL (35-150)
[2022-12-02 06:37] LABS: Troponin I < 0.012 ng/mL (0.01-0.034)
[2022-12-02 06:57] LABS: TSH w/ Reflex to FT4 1.11 uIU/mL (0.47-4.68)
[2022-12-02] MEDS: FLUTICASONE 120 SPRAY/16 GM SPRAY.SUSP NASAL (09:34)
--- NOTE | 2022-12-02 10:14 | SLP.IPNOTE ---
CA order per MD
--- NOTE | 2022-12-02 10:37 | DI.ECHO.S_ITS ---
[facility] +---------+ : : [address] [place] : : : : [id number] : : : : Phone: [phone]+ Echocardiogram Report + + :Name: CECILE GUTHRIE Study Date: 12/02/2022 Height: 74 in : :[facility] ReadingLocation: Weight: 240 lb : : Gender: Male BSA: 2.3 m2 : :: 1955 Age: 67 yrs BP: 123/64 mmHg: :Reason For Study: CHEST PAIN : :Ordering Physician: AC, : :SHARRI HUTCHINSON Performed By: Shahana Martinez : :Referring: SHARRI SHEN : + + Interpretation Summary The ejection fraction is estimated to be 60-65%. The left ventricle is mildly dilated. The right ventricle is mildly dilated. There is mild mitral regurgitation. There is mild tricuspid regurgitation. There is no pericardial effusion. The aortic root is mildly dilated. There is moderate aortic regurgitation. Procedure: A two-dimensional transthoracic echocardiogram with color flow and Doppler was performed. The study quality was technically adequate. There is no prior echocardiogram noted for this patient. The patient was in sinus bradycardia with heart rates between 53-63 bpm during the exam. Left Ventricle: The left ventricle is mildly dilated. The estimated left ventricular end diastolic volume is 143 ml. The ejection fraction is estimated to be 60-65%. Left ventricular wall motion is normal. Right Ventricle: The right ventricle is mildly dilated. The right ventricular systolic function is normal. Atria: The left atrium is mildly dilated. The right atrium is normal in size. There is no Doppler evidence for an interatrial shunt. Mitral Valve: The mitral valve leaflets appear normal. There is no evidence of stenosis, fluttering, or prolapse. There is mild mitral regurgitation. Aortic Valve: The aortic valve is trileaflet. The aortic valve is mildly calcified. There is discrete nodular thickening of the right coronary cusp. There is no aortic valve stenosis. There is moderate aortic regurgitation. Tricuspid Valve: The tricuspid valve leaflets are thin and pliable. There is mild tricuspid regurgitation. The right ventricular systolic pressure is estimated to be at least 24 mmHg based on an estimated right atrial pressure of 3 mm Hg. Pulmonic Valve: The pulmonic valve leaflets are thin and pliable; valve motion is normal. There is trace pulmonic regurgitation. Great Vessels: The aortic root is mildly dilated. The ascending aorta is mildly enlarged. The IVC is of normal diameter and collapses greater than 50% with a sniff. This suggests a low right atrial pressure of 3 mm Hg. Pericardium/ Pleura There is no pericardial effusion. There is no pleural effusion. MMode/2D Measurements & Calculations LVIDd: 6.3 cm LVOT diam: 2.4 cm LVIDs: 4.1 cm Ao root diam: 4.5 cm FS: 35.3 % asc Aorta Diam: 4.0 cm EPSS: 0.69 cm Ao Arch Diam (Prox Trans): 3.1 cm IVSd: 0.81 cm LVPWd: 0.85 cm LV denise. diameter/BSA (cm/m^2): 2.7 LV sys. diameter/BSA (cm/m^2): 1.7 LA A2 area: 27.5 cm2 RA long axis: 6.1 cm LA A4 area: 23.7 cm2 RA area: 20.8 cm2 LA length (vol): 5.7 cm RA vol: 60.4 ml LA vol: 96.4 ml RA : 25.7 ml/m2 LA vol index: 41.1 ml/m2 IVC diam: 1.5 cm RVD1 (basal): 4.5 cm RVD2 (mid): 3.5 cm TAPSE: 2.4 cm Doppler Measurements & Calculations Ao V2 max: 133.4 cm/sec LVOT Max [place]: 111.2 cm/sec Ao V2 mean: 93.9 cm/sec LV V1 max P.0 mmHg Ao max P.1 mmHg LV V1 VTI: 26.1 cm Ao mean P.9 mmHg NELLA(I,D): 3.7 cm2 Ao V2 VTI: 31.8 cm NELLA(V,D): 3.8 cm2 sev ratio: 0.82 NELLA indexed to BSA (cm^2/m^2): 1.6 AI P1/2t: 896.5 msec AI dec slope: 127.5 cm/sec2 MV E max cayla: 63.4 cm/sec TR max cayla: 232.6 cm/sec MV A max cayla: 51.5 cm/sec TR max P.7 mmHg MV E/A: 1.2 PA V2 max: 99.3 cm/sec Med Peak E' [place]: 6.8 cm/sec PA V2 mean: 63.1 cm/sec E/E' med: 9.3 PA mean P.8 mmHg Lat Peak E' [place]: 9.1 cm/sec PA pr(Accel): 37.9 mmHg E/E' lat: 7.0 E/e' average: 8.2 MV dec time: 0.28 sec SV(OT): 118.4 ml Reading Physician:11:50 AM
--- NOTE | 2022-12-02 15:45 | P.DS_ITS ---
History of Present Illness History of Present Illness Date Patient Seen: 12/02/22 Time Patient Seen: 15:45 Chief complaint: chest pain T-1 Narrative: Mr. Cerda is a 67M with listed history of hypertension who presents to the hospital with chest pain. He states the discomfort in his chest started the day prior to admission and has worsened. He describes the pain as constant, like a pressure in his chest. It is worth with breathing deeply. It is worse with layi ng on his side and improves with sitting up. He has felt it on his left and right side of his chest. It has radiated to his jaw. He was given nitro and the pain did not resolve. He has not had any cold symptoms. He does ask if he could referred pain from his spine as he has had laminectomy in the past, but he denies shooting, electrical, tingling pain. He does note having chronic sinus issues and frequently needing to clear is throat which he wonders if could be related. He notes having difficulty with swallowing at times, especially with liquids. He notes he had exercise stress test, he thinks in Jul 2021, which he says was normal. In the ED workup was done, vitals notable for afebrile, heart rate in 80s, blood pressure 150s/70s. Sats 98% on room air. Labs reviewed by me and notable for WBC 11.6, hgb 13.5, plts 347. Creatinine 0.77. Troponin negative x3. EKG reviewed and with multiple leads with early repolarization. Chest xray and CTA reviewed and negative for acute process. He was given aspirin and admitted for further treatment. Discharge Providers Provider Date of admission: 12/01/22 19:36 Discharge Date: 12/02/22 Primary care physician: Doctor Jimi MD Consults: 12/02/22 05:07 Consult to Speech Therapy Evaluate & Treat Comment: Physician Instructions: Evaluate and treat Discharge provider: Iggy Peña DO Summary Hospital Course Discharge Diagnosis: 1. Acute pericarditis 2. Hypertension, history of Hospital Course: This is a 67 year old male with hypertension admitted with chest pain. History was consistent with pericarditis, and the patient felt improved after starting on NSAIDs in the hospital. The following day he had near resolution of his symptoms. Stress testing was cancelled given concern for pericarditis, and echocardiogram was unremarkable with no pericardial effusion, but no wall motion abnormalities and a normal EF. CTA was negative for PE. He was discharged home to continue ibuprofen until symptoms resolve, then continue colchicine for prevention of recurrence for 90 days. Patient does not take medications for HTN, and BP was controlled at the time of discharge without therapies. Recommend follow up with primary care provider in the next few weeks to check in on his symptoms at that time. Time Spent with Patient Time spent: Greater than 30 minutes Exam Vital Signs (past 8 hours): - 12/02/22 09:15 12/02/22 10:00 12/02/22 13:00 Temperature 97.8 F 97.3 F L Pulse Rate 60 61 Respiratory Rate 16 17 Blood Pressure 111/54 L 115/62 Pulse Oximetry 97 97 97 Oxygen Delivery Method Room Air Oxygen Flow Rate 0 0 12/02/22 14:00 Temperature Pulse Rate Respiratory Rate Blood Pressure Pulse Oximetry 97 Oxygen Delivery Method Room Air Oxygen Flow Rate 0 Oxygen Delivery Method Room Air Oxygen Flow Rate 0 Narrative Exam Narrative: GEN: no acute distress HEENT: moist mucous membranes, PERRL NECK: trachea midline, no jvd PULM: clear bilaterally, no wheezes, rhonchi, rales CV: regular rate and rhythm, no murmurs ABD: soft, nontender, nondistended, no organomegaly EXT: warm and well perfused with no edema NEURO: awake, alert, oriented, with no focal deficits Objective Labs 12/02/22 05:42 12/02/22 05:42 Labs: Laboratory Results - last 24 hr 12/01/22 12/01/22 12/01/22 13:35 15:05 15:05 WBC RBC Hgb Hct MCV MCH MCHC RDW Plt Count Neut % (Auto) Lymph % (Auto) [place] % (Auto) Eos % (Auto) Baso % (Auto) Neut # (Auto) Lymph # (Auto) [place] # (Auto) Eos # (Auto) Baso # (Auto) ESR 11 Sodium Potassium Chloride Carbon Dioxide BUN Creatinine Estimated GFR BUN/Creatinine Ratio Glucose Calcium Magnesium Total Creatine Kinase 61 CK-MB (CK-2) TNP CK-MB (CK-2) Rel Index TNP Troponin I < 0.012 C-Reactive Protein 1.0 Triglycerides Cholesterol LDL Cholesterol, Calc HDL Cholesterol TSH 12/01/22 12/02/22 12/02/22 21:36 05:42 05:42 WBC 7.0 RBC 4.25 L Hgb 12.7 L Hct 37.3 L MCV 87.7 MCH 29.8 MCHC 34.0 RDW 13.4 Plt Count 302 Neut % (Auto) 57.1 Lymph % (Auto) 21.2 L [place] % (Auto) 16.6 H Eos % (Auto) 4.7 H Baso % (Auto) 0.4 Neut # (Auto) 4000 Lymph # (Auto) 1500 [place] # (Auto) 1200 H Eos # (Auto) 300 Baso # (Auto) 0 ESR Sodium 138 Potassium 4.0 Chloride 104 Carbon Dioxide 28 BUN 16 Creatinine 0.75 Estimated GFR > 60 BUN/Creatinine Ratio 21.3 Glucose 91 Calcium 8.5 Magnesium 2.2 Total Creatine Kinase CK-MB (CK-2) CK-MB (CK-2) Rel Index Troponin I < 0.012 C-Reactive Protein Triglycerides 83 Cholesterol 145 LDL Cholesterol, Calc 95 HDL Cholesterol 33 L TSH 12/02/22 12/02/22 05:42 05:42 WBC RBC Hgb Hct MCV MCH MCHC RDW Plt Count Neut % (Auto) Lymph % (Auto) [place] % (Auto) Eos % (Auto) Baso % (Auto) Neut # (Auto) Lymph # (Auto) [place] # (Auto) Eos # (Auto) Baso # (Auto) ESR Sodium Potassium Chloride Carbon Dioxide BUN Creatinine Estimated GFR BUN/Creatinine Ratio Glucose Calcium Magnesium Total Creatine Kinase CK-MB (CK-2) CK-MB (CK-2) Rel Index Troponin I < 0.012 C-Reactive Protein Triglycerides Cholesterol LDL Cholesterol, Calc HDL Cholesterol TSH 1.11 [facility], 1928–1983 Social History household members: spouse Smoking Status: Never smoker Discharge Plan Discharge Plan Patient Disposition: Home Provider Discharge Comment: You were admitted to the hospital with chest pain, this is likely due to a process call pericarditis which will improve with time. Continue ibuprofen until your symptoms completely resolve, then take as needed after. Continue colchicine twice a day for 3 months to prevent recurrence. Follow up with your PCP as soon as possible for symptom check. Do not perform strenuous exercise given this condition for at least one week, ideally until follow up with your primary care provider. Discharge orders & Medications Prescriptions: New colchicine 0.6 mg tablet 0.6 mg PO BID 90 Days Qty: 180 0RF ibuprofen 600 mg tablet 600 mg PO Q8H PRN (Reason: fever or pain) 30 Days Qty: 60 0RF Rx Instructions: take TID until symptoms resolve, then as needed Follow up/Referrals: Doctor Jimi, [Primary Care Provider] - Diet/Activity/Treatments Diet: Diet as Tolerated Activity: As tolerated Visit Report/Discharge Packet Instructions: DI for Atypical Chest Pain, DI for Chest Pain, Colchicine Stand Alone Forms: Patient Portal/API, Stroke Signs & Symptoms Discharge Data Primary Care Provider: Doctor Jimi Attending Provider: Iggy Peña Admit Date/Time: 12/01/22 19:36 Discharges patient from system. Discharge Date/Time: 12/02/22 16:05
--- NOTE | 2022-12-02 16:03 | PC.NURSE ---
IV removed. discussed new medications, s/s of stroke, and atypical chest pain, encouraged pt to return to ED with any unresolved chest pain. Patient wheeled out via w/c to pov with all belongings.
[2022-12-03 06:10] LABS: Labcorp Hemoglobin (Hb) A1c 5.5 % (4.8-5.6)
== END 2022-12-02 16:05 | disposition home or self-care (01) ==
LOC: ED 18:42 → AC 19:36
PROVIDERS: Internal Medicine; Admitting Provider Internal Medicine; Emergency Provider Emergency Medicine; Referring Provider Emergency Medicine; Visit Provider Internal Medicine
DX: R07.9 Chest pain, unspecified (principal); I10 Essential (primary) hypertension; Z20.822 Contact with and (suspected) exposure to COVID-19
CPT/HCPCS: 36415; 71045; 71275; 80048; 80053; 80061; 81003; 82550; 83036; 83690; 83735; 84443; 84484; 85025; 85379; 85610; 85651; 85730; 86140; 87635; 93005; 93010; 93306; 99284; C9803; G0378; Q9967